=== PATIENT | female | born 1970 | race Caucasian/White ===

== ENCOUNTER → 2021-02-22 10:18 | Outpatient (CLI) | payer SELFPAY ==
--- NOTE | 2021-02-22 10:25 | XR_ITS ---
PROCEDURE: XR CHEST PORTABLE CLINICAL HISTORY: cough Cough and fever COMPARISON: No exams were available for comparison FINDINGS: The cardiomediastinal silhouette and pulmonary vascularity are within normal limits. COPD changes. Coarsening of the bronchovascular markings. This can be seen with bronchitis or smoking related lung disease. There is mild prominence of the interstitium. No acute bony abnormalities. IMPRESSION: No obvious pneumonia. Coarsening of the bronchovascular markings with mild prominence of the interstitium which could be seen with smoking related lung disease, COPD, or interstitial pneumonitis either acute or chronic. Dictated by: Rodney Fink MD 02/22/2021 11:24 Rodney Fink MD in [place] 02/22/2021 11:24
[2021-02-22 13:21] LABS: Adenovirus,PCR Not Detected (NotDetected); Bordetella Pertussis Not Detected (NotDetected); Chlamydophila Pneumoniae, PCR Not Detected (NotDetected); Coronavirus 19, PCR Not Detected (NotDetected); Coronavirus 229E Not Detected (NotDetected); Coronavirus NL63 Not Detected (NotDetected); Coronavirus OC43 Not Detected (NotDetected); Coronovirus HKU1,PCR Not Detected (NotDetected); Human Metapneumovirus Not Detected (NotDetected); Influenza A, PCR Not Detected (NotDetected); Influenza AH1, 2009 Not Detected (NotDetected); Influenza AH1, PCR Not Detected (NotDetected); Influenza AH3,PCR Not Detected (NotDetected); Influenza B, PCR Not Detected (NotDetected); Mycoplasma Pneumoniae, PCR Not Detected (NotDetected); Parainfluenza 1, PCR Not Detected (NotDetected); Parainfluenza 2, PCR Not Detected (NotDetected); Parainfluenza 3, PCR Not Detected (NotDetected); Parainfluenza 4, PCR Not Detected (NotDetected); Respiratory Syncytial Virus Not Detected (NotDetected); Rhinovirus/Enterovirus Not Detected (NotDetected)
== END ==
LOC: COVID.OUT 10:20
PROVIDERS: PCP Family Medicine; Visit Provider Family Medicine
DX: Z20.822 Contact with and (suspected) exposure to COVID-19 (principal)
CPT/HCPCS: 71045; 87581; 87633; 87798

== ENCOUNTER → 2021-12-21 14:46 | Outpatient (CLI) | payer SELFPAY ==
[2021-12-21 14:14] LABS: Phenytoin (Dilantin) 8.2 ug/ml (10-20)
== END ==
LOC: LAB.DROPOF 14:46
PROVIDERS: PCP Family Medicine; Visit Provider Family Medicine
DX: G40.909 Epilepsy, unspecified, not intractable, without status epilepticus (principal)
CPT/HCPCS: 80185

== ENCOUNTER → 2022-10-08 23:11 | Outpatient (CLI) | payer OTHER, SELFPAY ==
[2022-10-08 19:13] LABS: Amphetamine/Metha Screen,Urine Negative ng/ml (<1000); Barbiturates Screen,Urine Positive ng/ml (<200)
[2022-10-08 19:14] LABS: Benzodiazepines Screen,Urine Negative ng/ml (<200)
[2022-10-08 19:16] LABS: Cannabinoid Screen,Urine Negative ng/ml (<50)
[2022-10-08 19:17] LABS: Cocaine Screen,Urine Negative ng/ml (<300)
[2022-10-08 19:18] LABS: Methadone Screen,Urine Negative ng/ml (<300); Opiate Screen,Urine Negative ng/ml (<300)
[2022-10-08 19:19] LABS: Phencyclidine Screen,Urine Negative ng/ml (<25)
== END ==
PROVIDERS: PCP Family Medicine; Visit Provider Family Medicine
DX: F41.9 Anxiety disorder, unspecified (principal)
CPT/HCPCS: 80305

== ENCOUNTER → 2022-11-07 11:00 | Outpatient (CLI) | payer OTHER, SELFPAY ==
[2022-11-07 21:05] LABS: Barbiturates Screen,Urine Positive ng/ml (<200)
[2022-11-07 21:06] LABS: Benzodiazepines Screen,Urine Negative ng/ml (<200)
[2022-11-07 21:07] LABS: Amphetamine/Metha Screen,Urine Negative ng/ml (<1000); Methadone Screen,Urine Negative ng/ml (<300)
[2022-11-07 21:08] LABS: Cannabinoid Screen,Urine Negative ng/ml (<50)
[2022-11-07 21:09] LABS: Cocaine Screen,Urine Negative ng/ml (<300)
[2022-11-07 21:10] LABS: Opiate Screen,Urine Negative ng/ml (<300); Phencyclidine Screen,Urine Negative ng/ml (<25)
== END ==
PROVIDERS: PCP Family Medicine; Visit Provider Family Medicine
DX: Z79.899 Other long term (current) drug therapy (principal)
CPT/HCPCS: 80305

== ENCOUNTER → 2022-11-07 20:06 | Outpatient (CLI) | payer OTHER, SELFPAY | PROVIDERS: PCP Family Medicine; Visit Provider Family Medicine | DX: Z79.899 Other long term (current) drug therapy (principal) ==

== ENCOUNTER → 2023-05-16 23:45 | Outpatient (CLI) | payer OTHER, SELFPAY | PROVIDERS: PCP Family Medicine; Visit Provider Family Medicine | DX: R06.02 Shortness of breath (principal); R50.9 Fever, unspecified; R05.9 Cough, unspecified; R51.9 Headache, unspecified | CPT/HCPCS: 87636 ==

== ENCOUNTER → 2023-06-18 07:16 | Outpatient (CLI) | payer OTHER, SELFPAY ==
[2023-06-18 18:53] LABS: Basophils # 0.1 K/mm3 (0-0.2); Basophils % 1.6 % (0.1-2.0); Eosinophils # 0.2 K/mm3 (0.0-0.4); Eosinophils % 2.5 % (0.1-12.0); Hematocrit 46.2 % (37.0-47.0); Hemoglobin 15.8 g/dL (12.2-16.2); Lymphocytes # 2.4 K/mm3 (0.7-4.5); Lymphocytes % 40.3 % (10-50); Mean Corpuscular HGB Conc 34.3 g/dL (31.8-35.4); Mean Corpuscular Hemoglobin 35.5 pg (27.0-31.2); Mean Corpuscular Volume 103.3 fl (81-99); Mean Platelet Volume 12.9 fl (7.4-10.4); Monocytes # 0.3 K/mm3 (0.1-1.0); Monocytes % 5.6 % (1.7-9.3); Neutrophils % 50.1 % (37.0-80.0); Platelet Count 208 K/mm3 (142-424); Red Blood Count 4.47 M/mm3 (4.20-5.40); Red Cell Distribution Width 13.3 % (11.5-17.5)
[2023-06-18 19:29] LABS: Barbiturates Screen,Urine Positive ng/ml (<200)
[2023-06-18 19:31] LABS: Cocaine Screen,Urine Negative ng/ml (<300)
[2023-06-18 19:32] LABS: Benzodiazepines Screen,Urine Negative ng/ml (<200); Cannabinoid Screen,Urine Negative ng/ml (<50)
[2023-06-18 19:33] LABS: Phencyclidine Screen,Urine Negative ng/ml (<25)
[2023-06-18 19:34] LABS: Methadone Screen,Urine Negative ng/ml (<300); Opiate Screen,Urine Negative ng/ml (<300)
[2023-06-18 20:23] LABS: Amphetamine/Metha Screen,Urine Negative ng/ml (<1000)
[2023-06-18 20:35] LABS: Alanine Aminotransferase 101 U/L (12-78); Albumin Level 4.9 g/dl (3.5-5.0); Albumin/Globulin Ratio 1.6 (1.1-1.8); Alkaline Phosphatase 208 U/L (38-126); Aspartate Amino Transferase 116 U/L (14-36); Bilirubin,Total 0.4 mg/dl (0.2-1.3); Blood Urea Nitrogen 3 mg/dl (7-17); Calcium 8.8 mg/dl (8.4-10.2); Carbon Dioxide 22 mmol/L (22.0-30.0); Chloride 100 mmol/L (98-107); Cholesterol 206 mg/dl (140-200); Estimated Glomerular Filt Rate 168 ml/min (>60); GFR (African American) 203 ML/MIN (>60); Glucose 60 mg/dl (74-100); Phenytoin (Dilantin) 18.7 ug/ml (10-20); Sodium 134 mmol/L (136-145); Total Protein,Serum 7.9 g/dl (6.3-8.2); Triglycerides 233 mg/dl (30-150); VLDL Cholesterol 47 mg/dL (0-40)
[2023-06-18 20:39] LABS: HDL Cholesterol 105 mg/dl (40-60)
[2023-06-18 20:43] LABS: Direct LDL Cholesterol 81.16 mg/dL (100-129)
== END ==
PROVIDERS: PCP Family Medicine; Visit Provider Family Medicine
DX: G40.909 Epilepsy, unspecified, not intractable, without status epilepticus (principal); Z79.899 Other long term (current) drug therapy
CPT/HCPCS: 80053; 80061; 80185; 80305; 85025

== ENCOUNTER 2023-07-23 18:23 | Outpatient (CLI) | payer OTHER, SELFPAY ==
[2023-07-23 19:21] LABS: Barbiturates Screen,Urine Positive ng/ml (<200); Benzodiazepines Screen,Urine Negative ng/ml (<200)
[2023-07-23 19:22] LABS: Cannabinoid Screen,Urine Negative ng/ml (<50)
[2023-07-23 19:23] LABS: Cocaine Screen,Urine Negative ng/ml (<300); Methadone Screen,Urine Negative ng/ml (<300)
[2023-07-23 19:24] LABS: Opiate Screen,Urine Negative ng/ml (<300); Phencyclidine Screen,Urine Negative ng/ml (<25)
[2023-07-23 19:35] LABS: Amphetamine/Metha Screen,Urine Negative ng/ml (<1000)
== END 2023-07-23 23:59 ==
LOC: LAB.DROPOF 18:23
PROVIDERS: PCP Family Medicine; Visit Provider Family Medicine
DX: Z79.899 Other long term (current) drug therapy (principal)
CPT/HCPCS: 80307

== ENCOUNTER 2023-10-30 13:51 | Outpatient (CLI) | payer OTHER, SELFPAY ==
--- NOTE | 2023-10-30 13:55 | XR_ITS ---
FINAL REPORT CLINICAL HISTORY: Left Shoulder Pain COMPARISON: None FINDINGS: LEFT SHOULDER 3 views of the left shoulder were obtained. There is no acute fracture or dislocation. There are mild changes of osteoarthritis of the glenohumeral joint. Soft tissues are unremarkable. IMPRESSION: Degenerative changes without acute bony abnormality. Reviewed, Interpreted and Dictated by Andrew Reinoso MD Transcribed by VALERIANO Zohu Authenticated and . [facility]
== END 2023-10-30 23:59 | disposition home or self-care (01) ==
LOC: RAD 13:52
PROVIDERS: PCP Family Medicine; Visit Provider Orthopaedic Surgery
DX: M25.512 Pain in left shoulder (principal)
CPT/HCPCS: 73030

== ENCOUNTER 2023-11-12 07:11 | Outpatient (CLI) | payer OTHER, SELFPAY ==
--- NOTE | 2023-11-12 07:11 | MR_ITS ---
FINAL REPORT CLINICAL HISTORY: Lt shoulder pain COMPARISON: None FINDINGS: Multiplanar MR imaging of the left shoulder was performed without contrast. The tendons of the rotator cuff are intact without evidence of rotator cuff tear. The acromioclavicular joint is intact. No abnormal fluid is seen in the subacromial/subdeltoid bursa. The glenoid labrum is intact. The long head of the biceps tendon is intact. No significant glenohumeral joint effusion is seen. There is no evidence of fracture or dislocation. There are small subchondral cysts in the superior humeral head. The musculature is intact. There is thickening of the joint capsule at the axillary recess which may represent adhesive capsulitis. IMPRESSION: No evidence of rotator cuff tear or labral tear. Possible adhesive capsulitis. Reviewed, Interpreted and Dictated by Jesus Cleary III, MD Transcribed by Bonnie Ayala Authenticated and [facility]
== END 2023-11-12 23:59 | disposition home or self-care (01) ==
LOC: RAD 07:11
PROVIDERS: PCP Family Medicine; Visit Provider Orthopaedic Surgery
DX: M25.512 Pain in left shoulder (principal)
CPT/HCPCS: 73221

== ENCOUNTER 2024-01-14 14:57 | Outpatient (CLI) | payer OTHER, SELFPAY ==
[2024-01-14 18:59] LABS: Alanine Aminotransferase 43 U/L (12-78); Albumin Level 3.7 g/dl (3.5-5.0); Albumin/Globulin Ratio 1.3 (1.1-1.8); Alkaline Phosphatase 174 U/L (38-126); Anion Gap 1.6 mEq/L (5-15); Aspartate Amino Transferase 48 U/L (14-36); Bilirubin,Total 0.3 mg/dl (0.2-1.3); Calcium 8.9 mg/dl (8.4-10.2); Carbon Dioxide 33 mmol/L (22.0-30.0); Chloride 101 mmol/L (98-107); Estimated Glomerular Filt Rate 168 ml/min (>60); GFR (African American) 203 ML/MIN (>60); Globulin 2.8 g/dL (1.3-3.2); Glucose 96 mg/dl (74-100); Potassium 3.6 mmoL/L (3.5-5.1); Sodium 132 mmol/L (136-145); Total Protein,Serum 6.5 g/dl (6.3-8.2)
[2024-01-14 19:35] LABS: Blood Urea Nitrogen < 2 mg/dl (7-17)
== END 2024-01-14 23:59 | disposition home or self-care (01) ==
LOC: LAB.DROPOF 01-15 09:12
PROVIDERS: PCP Family Medicine; Visit Provider Family Medicine
DX: L98.9 Disorder of the skin and subcutaneous tissue, unspecified (principal)
CPT/HCPCS: 80053

== ENCOUNTER 2025-01-12 12:08 | Outpatient (CLI) | payer OTHER, SELFPAY ==
[2025-01-12 21:28] LABS: Chloride 96 mmol/L (98-107); Potassium 3.6 mmoL/L (3.5-5.1); Sodium 133 mmol/L (136-145)
[2025-01-12 21:30] LABS: Alanine Aminotransferase 81 U/L (12-78); Anion Gap 12.6 mEq/L (5-15); Aspartate Amino Transferase 115 U/L (14-36); Blood Urea Nitrogen 3 mg/dl (7-17); Carbon Dioxide 28 mmol/L (22.0-30.0); Creatinine,Serum 0.40 mg/dl (0.52-1.04); Estimated Glomerular Filt Rate 167 ml/min (>60); GFR (African American) 202 ML/MIN (>60)
[2025-01-12 21:31] LABS: Alkaline Phosphatase 175 U/L (38-126); Bilirubin,Total 0.3 mg/dl (0.2-1.3); Calcium 8.7 mg/dl (8.4-10.2); Cholesterol 166 mg/dl (140-200); Glucose 64 mg/dl (74-100); HDL Cholesterol 76 mg/dl (40-60); Total Protein,Serum 6.7 g/dl (6.3-8.2); Triglycerides 82 mg/dl (30-150)
[2025-01-12 22:21] LABS: Albumin Level 4.1 g/dl (3.5-5.0); Albumin/Globulin Ratio 1.6 (1.1-1.8); Globulin 2.6 g/dL (1.3-3.2)
[2025-01-12 22:25] LABS: Hepatitis C Ab Qual. W/ RFX NEGATIVE (Negative)
[2025-01-14 09:52] LABS: Hepatitis B Surface Antigen Negative (Negative)
== END 2025-01-12 23:59 | disposition home or self-care (01) ==
LOC: LAB.DROPOF 01-13 12:54
PROVIDERS: PCP Family Medicine; Visit Provider Family Medicine
DX: E78.5 Hyperlipidemia, unspecified (principal); Z11.59 Encounter for screening for other viral diseases
CPT/HCPCS: 80053; 80061; 86803; 87340; 87389

== ENCOUNTER 2025-02-24 13:07 | Outpatient (CLI) | payer OTHER, SELFPAY ==
--- NOTE | 2025-02-24 13:00 | CT_ITS ---
FINAL REPORT TECHNIQUE: Axial CT of the brain with contrast. Coronal and sagittal reformatted images were obtained. This study was performed with techniques to keep radiation doses as low as reasonably achievable, (ALARA). Individualized dose reduction techniques using automated exposure control or adjustment of mA and/or kV according to the patient's size were employed. CLINICAL HISTORY: Cephalgia s/p craniotomy COMPARISON: None FINDINGS: CT HEAD WITH CONTRAST: There is no mass effect or midline shift. There is no hydrocephalus. The ventricles are symmetric in size and configuration. There is encephalomalacia in the left parietal vertex, it is likely secondary to prior surgery. There are changes from a left parietal craniotomy. There is no extra-axial or intraparenchymal hemorrhage. The posterior fossa is without acute abnormality. The basilar cisterns are preserved. The soft tissues are without acute abnormality. No acute osseous abnormality is identified. No abnormal contrast enhancement. IMPRESSION: Encephalomalacia in the left parietal vertex, likely secondary to prior surgery. No abnormal mass or enhancement. Reviewed, Interpreted and Dictated by Alexandra Michelle MD Transcribed by Fern Vale Authenticated and [facility]
[2025-02-24] MEDS: IOPAMIDOL-300 (61%) 100ML VIAL 83 ML IV (13:39)
== END 2025-02-24 23:59 | disposition home or self-care (01) ==
LOC: RAD 13:08
PROVIDERS: PCP Family Medicine; Visit Provider Family Medicine
DX: G93.89 Other specified disorders of brain (principal); Z98.890 Other specified postprocedural states; G40.909 Epilepsy, unspecified, not intractable, without status epilepticus; Z85.841 Personal history of malignant neoplasm of brain
CPT/HCPCS: 70460; Q9967

== ENCOUNTER 2025-04-22 11:54 | Outpatient (CLI) | payer OTHER, SELFPAY ==
[2025-04-22 19:26] LABS: Hematocrit 41.0 % (37.0-47.0); Hemoglobin 14.1 g/dL (12.2-16.2); Immature Granulocytes % 0.3 %; Mean Corpuscular HGB Conc 34.4 g/dL (31.8-35.4); Mean Corpuscular Hemoglobin 34.2 pg (27.0-31.2); Mean Corpuscular Volume 99.5 fl (81-99); Nucleated Red Blood Cells % 0 %; Platelet Count 173 K/mm3 (142-424); Red Blood Count 4.12 M/mm3 (4.20-5.40); Red Cell Distribution Width-SD 51.2 fL; White Blood Count 6.1 K/mm3 (4.8-10.8)
[2025-04-22 19:44] LABS: Alanine Aminotransferase 38 U/L (12-78); Albumin Level 3.8 g/dl (3.5-5.0); Albumin/Globulin Ratio 1.5 (1.1-1.8); Alkaline Phosphatase 195 U/L (38-126); Anion Gap 13.3 mEq/L (5-15); Aspartate Amino Transferase 75 U/L (14-36); Bilirubin,Total 0.5 mg/dl (0.2-1.3); Blood Urea Nitrogen 2 mg/dl (7-17); Calcium 8.5 mg/dl (8.4-10.2); Carbon Dioxide 28 mmol/L (22.0-30.0); Chloride 95 mmol/L (98-107); Creatinine,Serum 0.40 mg/dl (0.52-1.04); Estimated Glomerular Filt Rate 167 ml/min (>60); GFR (African American) 202 ML/MIN (>60); Globulin 2.6 g/dL (1.3-3.2); Glucose 74 mg/dl (74-100); Potassium 3.3 mmoL/L (3.5-5.1); Sodium 133 mmol/L (136-145); Total Protein,Serum 6.4 g/dl (6.3-8.2)
[2025-04-22 20:13] LABS: Thyroid Stimulating Hormone 1.43 uIU/mL (0.465-4.68)
[2025-04-22 22:38] LABS: Phenytoin (Dilantin) 22.4 ug/ml (10-20)
== END 2025-04-22 23:59 ==
LOC: LAB.DROPOF 04-25 11:55
PROVIDERS: PCP Family Medicine; Visit Provider Family Medicine
DX: E78.5 Hyperlipidemia, unspecified (principal); G40.909 Epilepsy, unspecified, not intractable, without status epilepticus; R19.7 Diarrhea, unspecified; F41.9 Anxiety disorder, unspecified
CPT/HCPCS: 80053; 80074; 80184; 80185; 84443; 85025

== ENCOUNTER 2025-05-03 15:13 | Outpatient (CLI) | payer OTHER, SELFPAY ==
[2025-05-03 15:19] LABS: Adenovirus F 40/41, stool Not Detected (NotDetected); Clostridium Difficile A/B, PCR Not Detected (NotDetected); Cyclospora Cayetanesis Not Detected (NotDetected); Plesimonas Shigalloides, PCR Not Detected (NotDetected); Salmonella, PCR Not Detected (NotDetected); Shiga-like toxin E coli Not Detected (NotDetected); Shigella Enterovasive E coli Not Detected (NotDetected); Vibrio, PCR Not Detected (NotDetected); Yersinia Entercolitica, PCR Not Detected (NotDetected)
== END 2025-05-03 23:59 | disposition home or self-care (01) ==
LOC: LAB 15:13
PROVIDERS: PCP Family Medicine; Visit Provider Family Medicine
DX: R19.7 Diarrhea, unspecified (principal)
CPT/HCPCS: 87507

== ENCOUNTER 2025-05-17 12:51 | Outpatient (CLI) | payer OTHER, SELFPAY ==
--- NOTE | 2025-05-17 13:00 | CT_ITS ---
FINAL REPORT TECHNIQUE: IV contrast enhanced exam This study was performed with techniques to keep radiation doses as low as reasonably achievable, (ALARA). Individualized dose reduction techniques using automated exposure control or adjustment of mA and/or kV according to the patient''s size were employed. CLINICAL HISTORY: Severe epigastric pain/diarrhea/blood in stool FINDINGS: Abdomen: No acute density is seen within the lung bases. The gallbladder is unremarkable. Solid abdominal organs are unremarkable. No bowel obstruction is present. There is no free air. No fluid collection is seen. There is no adenopathy. There is a tiny midline upper abdominal wall hernia containing fat. The hernia sac also contains fluid with stranding which suggests fat ischemia of the herniated fat. The abdominal wall defect measures 7 mm with hernia sac measuring approximately 25 mm. There is mild wall thickening of the right and transverse colon suggestive of colitis. Pelvis: There is no evidence of appendicitis. There is wall thickening of the sigmoid colon. The uterus and ovaries are unremarkable. There is no free fluid. No pelvic mass is seen. IMPRESSION: Findings suggestive of colitis, this could be related to infectious colitis or inflammatory bowel disease. Recommend following up colonoscopy. No bowel obstruction. Small upper midline abdominal wall hernia containing fat with probable fatty ischemic change. Reviewed, Interpreted and Dictated by Sebas Torres MD Transcribed by Shaina Leiva Authenticated and . [facility]
[2025-05-17] MEDS: SODIUM CHLORIDE 0.9% 10ML SYR (RAD ONLY) 10 ML IV (13:20)
[2025-05-17] MEDS: IOPAMIDOL-370 (76%);100ML BOTTLE 75 ML IV (13:20)
== END 2025-05-17 23:59 | disposition home or self-care (01) ==
LOC: RAD 12:51
PROVIDERS: PCP Family Medicine; Visit Provider Nurse Practitioner Family
DX: R93.3 Abnormal findings on diagnostic imaging of other parts of digestive tract (principal); K43.9 Ventral hernia without obstruction or gangrene; K62.5 Hemorrhage of anus and rectum; R10.13 Epigastric pain; R11.2 Nausea with vomiting, unspecified; R15.2 Fecal urgency; R63.4 Abnormal weight loss; R19.7 Diarrhea, unspecified
CPT/HCPCS: 74177; Q9967

== ENCOUNTER 2025-06-08 13:31 | Outpatient (CLI) | payer OTHER, SELFPAY ==
[2025-06-08 13:34] LABS: Clostridium Difficile A/B, PCR Not Detected (NotDetected); Cyclospora Cayetanesis Not Detected (NotDetected); Salmonella, PCR Not Detected (NotDetected); Shiga-like toxin E coli Not Detected (NotDetected); Shigella Enterovasive E coli Not Detected (NotDetected); Vibrio, PCR Not Detected (NotDetected); Yersinia Entercolitica, PCR Not Detected (NotDetected)
[2025-06-08 17:21] LABS: Phenytoin (Dilantin) 20.5 ug/ml (10-20)
== END 2025-06-08 23:59 | disposition home or self-care (01) ==
LOC: LAB 13:31
PROVIDERS: PCP Family Medicine; Visit Provider Nurse Practitioner Family
DX: K52.9 Noninfective gastroenteritis and colitis, unspecified (principal); G40.909 Epilepsy, unspecified, not intractable, without status epilepticus
CPT/HCPCS: 80185; 87506

== ENCOUNTER 2025-06-16 11:45 | Day surgery (SDC) | payer OTHER, SELFPAY ==
--- NOTE | 2025-06-14 15:44 | EXP.HP ---
History of Present Illness *Admission Date: 06/16/25 *History of present illness: Mrs. Abreu is a 55-year-old female who is here for diagnostic EGD and colonoscopy. The patient reports abdominal pain, cramps, nausea, vomiting, dry heaves and weight loss. The patient also has had chronic diarrhea for the past 10 years and over the last 5 or 6 months, she has had a change in bowel habits. She developed more severe diarrhea with up to 20 urgent bowel movements daily which are liquid. She does get blood with her bowel movements and mucus. She did have a PCR stool panel that was positive for E. coli and she was treated with completed course of Bactrim without improvement. Her CAT scan showed evidence of colonic wall thickening and colitis. She has never had EGD or colonoscopy. The patient does state that her sister has Crohn's disease. She reports no family history of colitis, celiac disease, esophageal, gastric or colon cancer.. The examination is deemed medically necessary for diagnostic EGD and colonoscopy. The patient has been seen, interviewed and examined prior to the procedure by both myself and the anesthesia provider. [facility] Disclaimer: The information contained in this section may have been updated after the patient was seen, as this information can be updated by other users. Medical History Internal derangement of left shoulder Anxiety HLD (hyperlipidemia) Insomnia History of brain cancer Seizure disorder Headache Surgical History Status post craniotomy Family History Other No significant family history Social History Smoking Status: Current every day smoker alcohol intake: never substance use type: denies use current occupational status: employed Travel in the last 8 weeks?: None household members: spouse Have you lived/traveled outside US in past 30 days?: No Contact w/someone who lives/traveled outside US past 30 days?: No Exposure to someone with infectious disease in past 14 days?: No Do you have a fever (greater than 100.4 F or 38 C)?: No Have you tested positive for COVID-19?: No Exposed to someone with COVID-19 in past 14 days?: No Do you have a sore throat?: No Do you have a cough?: No Do you have any weakness?: No Do you have any diarrhea?: No Are you experiencing any unusual bleeding?: No Do you have any muscle aches/pain?: No Do you have any abdominal pain?: No Are you experiencing loss of taste or smell?: No Other Medical History Have you received the Pneumonia Vaccine: No Review of Systems Review of Systems Review of systems (narrative): Negative *Cardiovascular Comments: Negative *Gastrointestinal Comments: Negative *Genitourinary Comments: Negative *Musculoskeletal Comments: Negative *Neurologic Comments: Negative Meds Home Medications and Allergies Home Medications ?Medication ?Instructions ?Recorded ?Confirmed ?Type phenytoin sodium extended 100 mg 100 mg PO .6xday epilepsy #540 caps 09/30/24 06/16/25 Rx capsule trazodone 150 mg tablet See Rx Instructions .Route 09/30/24 06/16/25 Rx .COMPLEX #90 tabs oxycodone-acetaminophen 5 mg-325 1 tab PO ONCE PRN pain #30 tabs 04/22/25 06/16/25 Rx mg tablet (Percocet) loperamide 1 mg/7.5 mL oral liquid 2 mg PO Q4H 05/03/25 06/16/25 History (Imodium A-D) bismuth subsalicylate 262 mg/15 mL 524 mg PO Q30M 06/01/25 06/16/25 History oral suspension (Pepto-Bismol) hydrocortisone-pramoxine 2.5 %-1 % 1 applic SD DAILY #30 grams 06/07/25 06/16/25 Rx rectal cream phenobarbital 32.4 mg tablet 32.4 mg PO BID 30 days #150 tabs 06/08/25 06/16/25 Rx New Prescriptions to Start Prescriptions: Allergies Allergy/AdvReac Type Severity Reaction Status Date / Time acetaminophen (From Allergy Severe Breathing Verified 06/16/25 12:25 Tylenol-Codeine #3) Issues codeine (From Allergy Severe Breathing Verified 06/16/25 12:25 Tylenol-Codeine #3) Issues levetiracetam (From Keppra) Allergy Severe Rash Verified 06/16/25 12:25 Exam *Routine HEENT Exam Head: Present normocephalic Eye: Present EOMI and PERRL ENT: Present mucous membranes moist *Routine Neck Exam Neck: Present supple *Routine Respiratory Exam Respiratory: Present CTA bilaterally *Routine Cardiovascular Exam Cardiovascular: Present RRR *Routine Abdominal Exam Abdominal: Present soft and normoactive bowel sounds; Absent tenderness *Routine Rectal Exam Rectal:: deferred *Routine Genitalia Exam Genitalia:: deferred *Routine Extremities Exam Extremities: Absent cyanosis, clubbing or edema *Routine Skin Exam Skin: Present warm; Absent rash *Routine Neurological Exam Neurological: Present alert and oriented X3 Assessment and Plan *Assessment and plan (1) Nausea & vomiting: Status: Acute Category: Medical Code(s): R11.2 - Nausea with vomiting, unspecified (2) Change in bowel habits: Status: Acute Category: Medical Code(s): R19.4 - Change in bowel habit (3) Bright red blood per rectum: Status: Acute Category: Medical Code(s): K62.5 - Hemorrhage of anus and rectum (4) Mucus in stool: Status: Acute Category: Medical Code(s): R19.5 - Other fecal abnormalities (5) Fecal urgency: Status: Acute Category: Medical Code(s): R15.2 - Fecal urgency (6) Loss of appetite: Status: Acute Category: Medical Code(s): R63.0 - Anorexia (7) Weight loss: Status: Acute Category: Medical Code(s): R63.4 - Abnormal weight loss (8) Epigastric pain: Status: Acute Category: Medical Code(s): R10.13 - Epigastric pain (9) Diarrhea: Status: Acute Category: Medical Code(s): R19.7 - Diarrhea, unspecified (10) Family history of Crohn's disease: Status: Acute Category: Medical Code(s): Z83.79 - Family history of other diseases of the digestive system Plan A/P: 1. Nausea/vomiting, epigastric abdominal pain, loss of appetite and weight loss for upper endoscopy and change in bowel habits with marked fecal urgency, frequency and diarrhea for colonoscopy is the preprocedural diagnosis. The patient also has generalized abdominal pain, weight loss and family history of Crohn's disease (sister) the patient will be anesthetized/sedated using MAC sedation. The patient has been seen and examined. Cardiac and lung assessment prior to the examination is stable. Proceed with planned diagnostic EGD and colonoscopy.
[2025-06-15 15:44] VITALS: BMI 16.2
--- NOTE | 2025-06-16 06:59 | P.PCN_ITS ---
[facility] Procedure Note Date: 06/16/25 Time: 14:10 Procedure Note:: Colonoscopy Procedure Report: Colonoscopy with cold snare polypectomy, cold biopsies, attempted snare cautery and epinephrine injection submucosally Endoscopist: Jimbo Elizabeth II, MD Referring physician: Francisco Asencio MD Date of Procedure: June 16, 2025 Equipment: Olympus [id number] adult colonoscope Sedation: MAC sedation Indication: Mrs. Abreu is a 55-year-old female who is here for diagnostic EGD and colonoscopy. The patient reports abdominal pain, cramps, nausea, vomiting, dry heaves and weight loss. The patient also has had chronic diarrhea for the past 10 years and over the last 5 or 6 months, she has had a change in bowel habits. She developed more severe diarrhea with up to 20 urgent bowel movements daily which are liquid. She does get blood with her bowel movements and mucus. She did have a PCR stool panel that was positive for E. coli and she was treated with completed course of Bactrim without improvement. Her CAT scan showed evidence of colonic wall thickening and colitis. She has never had EGD or colonoscopy. The patient does state that her sister has Crohn's disease. She reports no family history of colitis, celiac disease, esophageal, gastric or colon cancer.. The examination is deemed medically necessary for diagnostic EGD and colonoscopy. Procedure: Prior to the procedure, a history and physical exam was performed, and patient's medications and allergies were reviewed. The risks, benefits and alternatives of the sedation and procedure were discussed with the patient. All questions were answered and informed consent was obtained. The patient was brought to the procedure room. Patient identification and proposed procedure were verified by the physician and the nurse. The patient was placed in a left lateral decubitus position and the scope was passed under direct vision. Throughout the procedure, the patient's blood pressure, pulse, and oxygen saturations were monitored continuously. The colonoscopy was accomplished without difficulty. The patient tolerated the procedure well. Findings: On digital rectal examination there was normal rectal tone. There were no external hemorrhoids. The colonoscope was introduced through the anal canal to the rectum and advanced to the cecum. The ileocecal valve and appendiceal orifice were identified. The scope was advanced a short distance into the ileum which appeared grossly normal. The scope was then withdrawn into the colon. There were 3 polyps in the ascending colon (4, 4 and 5 mm) and 3 polyps in the transverse colon (4, 5 and 6 mm) which were all removed via cold snare polypectomy. The remaining cecum, ascending and transverse colon and mucosa were grossly normal. There were a few scattered diverticuli throughout the descending and sigmoid colon (LEFT colon). Within the lower sigmoid colon at 22 cm from the anal verge was a large mass with a very wide stalk and the mass was approximately 30-35 mm in diameter and filled the circumference. A larger 30 mm hot snare was utilized and this was grasped. However, the stalk appeared to be very wide and when snare cautery and Endo Clip was applied, this was not easily removed because of some submucosal tissue within the stalk. It was deemed more risky to try to remove this. Because of some minor heme, injection was made within the lowest portion of the polyp between the polyp and stalk. Only 2 cc of 1-10,000 epinephrine was injected submucosally. Multiple cold biopsies were taken from the apex of this and sent for histology. The rectum itself was normal. Upon retroflexion within the rectum there were grade 2 internal hemo rrhoids. The preparation was excellent throughout with Allons Preparation Score of 9. The cecal time was 18 minutes. Impression: 1. Large 30 to 35 mm mass with apical mucosal morphology consistent with advanced adenoma or adenocarcinoma (located in lower sigmoid 22 cm from anal verge) 2. Additional diminutive polyps x 6 3. Mild left-sided diverticulosis 4. Grade 2 internal hemorrhoids Plan: I will follow-up the biopsies of this large sigmoid mass. If biopsies are benign/advanced adenoma would consider repeat with complete resection or referral for tertiary center removal with Brayan Palmer MD ([facility]).
--- NOTE | 2025-06-16 06:59 | P.PCN_ITS ---
[facility] Procedure Note Date: 06/16/25 Time: 13:30 Procedure Note:: Upper Endoscopy Procedure Report: Esophagogastroduodenoscopy with cold biopsies Endoscopost: Jimbo Elizabeth II, MD Referring Physician: Francisco Asencio MD Date of Procedure: June 16, 2025 Equipment: Olympus [id number] standard upper endoscope Sedation: MAC sedation Indications: Mrs. Abreu is a 55-year-old female who is here for diagnostic EGD and colonoscopy. The patient reports abdominal pain, cramps, nausea, vomiting, dry heaves and weight loss. The patient also has had chronic diarrhea for the past 10 years and over the last 5 or 6 months, she has had a change in bowel habits. She developed more severe diarrhea with up to 20 urgent bowel movements daily which are liquid. She does get blood with her bowel movements and mucus. She did have a PCR stool panel that was positive for E. coli and she was treated with completed course of Bactrim without improvement. Her CAT scan showed evidence of colonic wall thickening and colitis. She has never had EGD or colonoscopy. The patient does state that her sister has Crohn's disease. She reports no family history of colitis, celiac disease, esophageal, gastric or colon cancer. The examination is deemed medically necessary for diagnostic EGD and colonoscopy. Procedure: Prior to the procedure, a history and physical exam was performed, and patient's medications and allergies were reviewed. The risks, benefits and alternatives of the sedation and procedure were discussed with the patient. All questions were answered and informed consent was obtained. The patient was brought to the procedure room. Patient identification and proposed procedure were verified by the physician and the nurse. The patient was placed in a left lateral decubitus position and the scope was passed under direct vision. Throughout the procedure, the patient's blood pressure, pulse, and oxygen saturations were monitored continuously. The upper GI endoscopy was accomplished without difficulty. The patient tolerated the procedure well. Findings: The scope was passed directly into the upper esophagus and advanced to the third portion of the duodenum. The post bulbar duodenum, ampulla and duodenal bulb were normal with normal mucosa and conniventes. 2 cold biopsies were taken from the second portion of the duodenum for the disaccharidase assay. 2 cold biopsies were taken from the bulb and first portion of the duodenum to rule out celiac disease. The scope was withdrawn through a normal duodenal bulb and pylorus into the stomach. There was bile reflux with some mild linear antral gastropathy. There was also some chronic gastritis of the proximal stomach (body and fundus). Cold biopsies were taken along the lesser curvature to rule out H. pylori. Upon retroflexion there was a small 1 to 2 cm hiatal hernia. The scope was then withdrawn into the esophagus. There was no evidence of reflux esophagitis or Hayes's. The remainder of the esophageal mucosa was normal. Impression: 1. Nonerosive GERD with very small sliding hiatal hernia (1 to 2 cm) 2. Bile reflux with mild linear antral gastropathy and mild chronic gastritis Plan: I will follow-up the biopsies and disaccharidase assay. I will proceed with diagnostic colonoscopy.
[2025-06-16 12:30] VITALS: BP 114/79; PULSE 96; RESP 18; TEMP 36.2; O2SAT 97
[2025-06-16] MEDS: LACTATED RINGERS 1000ML 1,000 ML 50 ML IV (12:35)
--- NOTE | 2025-06-16 12:42 | EXP.ANES.CKL ---
[facility] Disclaimer: The information contained in this section may have been updated after the patient was seen, as this information can be updated by other users. Medical History Internal derangement of left shoulder Anxiety HLD (hyperlipidemia) Insomnia History of brain cancer Seizure disorder Headache Surgical History Status post craniotomy Family History Other No significant family history Social History Smoking Status: Current every day smoker alcohol intake: never substance use type: denies use current occupational status: employed Travel in the last 8 weeks?: None household members: spouse Have you lived/traveled outside US in past 30 days?: No Contact w/someone who lives/traveled outside US past 30 days?: No Exposure to someone with infectious disease in past 14 days?: No Do you have a fever (greater than 100.4 F or 38 C)?: No Have you tested positive for COVID-19?: No Exposed to someone with COVID-19 in past 14 days?: No Do you have a sore throat?: No Do you have a cough?: No Do you have any weakness?: No Do you have any diarrhea?: No Are you experiencing any unusual bleeding?: No Do you have any muscle aches/pain?: No Do you have any abdominal pain?: No Are you experiencing loss of taste or smell?: No [facility] Anesthesia Checklist Patient Identification Patient Identification: Arm Band Structural Data Admitted From: Home Planned Operative Procedure/s: EGD/Colonoscopy Consent for Planned Operative Procedure(s) Verified: Yes Verified Documents: Surgical Consent and History and Physical NPO Status Verified Time NPO: 00:00 Additional verifications Anesthesia Reactions: No Airway Assessment Mallampati Score:: Class II C-Spine Mobility Assessed: Yes TMJ Mobility Assessed: Yes Dentition: Edentulous Neurological Assessment Level of Consciousness: Awake, Alert and Appropriate Anesthesia Plan Anesthesia Risk discussed: Yes Anesthesia Plan: Verified ASA Class: II Anesthesia Type: MAC
[2025-06-16] MEDS: EPINEPHrine 0.1 MG/ML 10ML SYRINGE (CRASH CART) 1 MG (13:58)
[2025-06-16 14:06] VITALS: BP 110/71; PULSE 85; RESP 20; TEMP 36.6; O2SAT 97
[2025-06-16 14:16] VITALS: BP 131/72; PULSE 83; TEMP 36.6; O2SAT 96
[2025-06-16 14:26] VITALS: BP 119/72; PULSE 81; O2SAT 95
[2025-06-16 14:36] VITALS: BP 109/71; PULSE 80; O2SAT 95
--- NOTE | 2025-06-16 15:21 | SUR.PHASEII ---
Patient had one episode of vomitting while in post op. patient also noted with liquid brown stools with bloody drainage, Dr Elizabeth was made aware of bleeding and looked at the amount of blood while patient was in bathroom per Dr. Elizabeth blood r/t the removal of polyps. Patient also c/o intermittent abdominal pain as well, Dr. Elizabeth also made aware of the pain and assessed the patient's pain upon discussion of findings.
[2025-06-22 14:12] LABS: Interpretation Notes (.); Lactase 3.19 (>/= 14.0); Maltase 191.42 (>/= 110.0); Palatinase 6.38 (>/= 8.5); Reference Notes (.); Sucrase 40.83 (>/= 25.0)
== END 2025-06-16 14:36 | disposition home or self-care (01) ==
PROVIDERS: PCP Family Medicine; Visit Provider Internal Medicine Gastroenterology
PROC: 0DJ08ZZ Inspection of Upper Intestinal Tract, Via Natural or Artificial Opening Endoscopic (ICD-10-PCS; CPT 45378; principal; 2025-06-16 13:30)
DX: D12.5 Benign neoplasm of sigmoid colon (principal); D12.3 Benign neoplasm of transverse colon; K57.30 Diverticulosis of large intestine without perforation or abscess without bleeding; K29.50 Unspecified chronic gastritis without bleeding; K52.9 Noninfective gastroenteritis and colitis, unspecified; K21.9 Gastro-esophageal reflux disease without esophagitis; K44.9 Diaphragmatic hernia without obstruction or gangrene; K64.1 Second degree hemorrhoids; F17.200 Nicotine dependence, unspecified, uncomplicated; G40.909 Epilepsy, unspecified, not intractable, without status epilepticus; E78.5 Hyperlipidemia, unspecified; F41.9 Anxiety disorder, unspecified; G47.00 Insomnia, unspecified; Z79.899 Other long term (current) drug therapy; Z88.5 Allergy status to narcotic agent; Z88.8 Allergy status to other drugs, medicaments and biological substances; Z83.79 Family history of other diseases of the digestive system
CPT/HCPCS: 43239; 45380; 45385; 82657; J0169; J2003; J2704; J7120